=== PATIENT | male | born 1980 | race Caucasian/White ===

== ENCOUNTER 2020-09-15 12:59 | Emergency (ER) | payer SELFPAY ==
--- NOTE | ~2020-09-15 | US_ITS ---
EXAMINATION: US SCROTUM CLINICAL INFORMATION: Left testicular pain. Question torsion. COMPARISON: None TECHNIQUE: A sonogram of the scrotum was performed assessing viera-scale appearance and color Doppler flow. Spectral Doppler analysis of the arterial and venous flow were performed in the testes bilaterally. FINDINGS: RIGHT: Right testicle measures 5 x 2.3 x 3.3 cm, volume 19.9 mL. No focal testicular parenchymal lesions are visualized. Spectral Doppler analysis of the arterial and venous flow is normal in the right testis. Right epididymal head is normal in size. No right hydrocele or varicocele is seen. Right epididymal Doppler flow is within normal limits. LEFT: Left testicle measures 4.9 x 2.5 x 3.5 cm, volume 22.9 mL. No focal testicular parenchymal lesions are visualized. Spectral Doppler analysis of the arterial and venous flow is normal in the left testis. Left epididymal head is normal in size. No left hydrocele or varicocele is seen. Left epididymal Doppler flow is within normal limits. US/US scrotum doppler IMPRESSION: No sonographic findings to suggest acute active testicular torsion.
--- NOTE | ~2020-09-15 | US_ITS ---
EXAMINATION: US SCROTUM CLINICAL INFORMATION: Left testicular pain. Question torsion. COMPARISON: None TECHNIQUE: A sonogram of the scrotum was performed assessing viera-scale appearance and color Doppler flow. Spectral Doppler analysis of the arterial and venous flow were performed in the testes bilaterally. FINDINGS: RIGHT: Right testicle measures 5 x 2.3 x 3.3 cm, volume 19.9 mL. No focal testicular parenchymal lesions are visualized. Spectral Doppler analysis of the arterial and venous flow is normal in the right testis. Right epididymal head is normal in size. No right hydrocele or varicocele is seen. Right epididymal Doppler flow is within normal limits. LEFT: Left testicle measures 4.9 x 2.5 x 3.5 cm, volume 22.9 mL. No focal testicular parenchymal lesions are visualized. Spectral Doppler analysis of the arterial and venous flow is normal in the left testis. Left epididymal head is normal in size. No left hydrocele or varicocele is seen. Left epididymal Doppler flow is within normal limits. US/US scrotum IMPRESSION: No sonographic findings to suggest acute active testicular torsion.
--- NOTE | ~2020-09-15 | CT_ITS ---
EXAMINATION: CT ABDOMEN AND PELVIS WITHOUT CONTRAST CLINICAL INFORMATION: Left flank pain. Rule out kidney stone. COMPARISON: Prior images 08/31/2015 are not available for direct comparison. Correlation done with the report. TECHNIQUE: Multidetector volumetric imaging was performed from the superior aspect of the liver through the pubic symphysis. Sagittal and coronal reformatted images were obtained on the technologist's workstation. This CT examination was performed using dose optimization techniques as appropriate, variously including the following: *Automated exposure control. *Adjustment of mA and/or kV according to patient size (this includes techniques or standardized protocols for targeted exams where dose is matched to indication/reason for exam; i.e. extremities or head). *Use of iterative reconstruction technique. DLP: 520 mGy-cm. FINDINGS: LUNG BASES: The visualized lung bases are unremarkable. LIVER, GALLBLADDER, AND BILIARY TREE: The liver is normal in size, shape, and attenuation. No focal hepatic lesion or biliary ductal dilatation is present. The gallbladder is unremarkable with no evidence of radiopaque gallstones, gallbladder wall thickening, or obvious pericholecystic inflammatory changes. PANCREAS: Unremarkable. SPLEEN: Unremarkable. ADRENAL GLANDS: Unremarkable. KIDNEYS AND URETERS: Multiple right renal nonobstructing calculi; larger calculi including a 3 mm calculus in the lower pole, 3 mm calculus in the midpole, 2 mm calculus in the upper pole. Multiple nonobstructing calculi in the left kidney; larger includes 2 mm calculus in the midpole, 3 mm calculus in the lower pole. There is a 5.1 cm right parapelvic cyst. Multiple low signal foci in bilateral kidneys, larger of which have measurements compatible with a cyst, smaller of which are too small to characterize, probably reflecting cysts. No hydronephrosis. No ureteral calculi are seen. BLADDER: Unremarkable. GASTROINTESTINAL TRACT: Stomach is nondistended. Small and large bowel loops appear unremarkable. Nonobstructive bowel gas pattern. Normal appendix. ABDOMINAL WALL: No significant hernia is appreciated. LYMPH NODES: No adenopathy seen in the abdomen or pelvis. VASCULAR: Normal caliber aorta. PELVIC VISCERA: Within normal limits. OSSEOUS STRUCTURES: No suspicious osseous abnormality seen. CT/CT abdomen pelvis wo con IMPRESSION: 1. Multiple bilateral nonobstructing renal calculi. No evidence for ureteral calculi. No evidence of hydronephrosis. 2. Right renal 5.1 cm parapelvic cyst. Multiple hypodense lesions in bilateral kidneys, probable cyst. 3. Nonobstructive bowel gas pattern.
[2020-09-15 13:02] VITALS: BP 170/95; PULSE 95; RESP 18; TEMP 36.6; O2SAT 97; BMI 27.5
[2020-09-15 13:18] LABS: Glucose Urine UA NEG (NEG); Leukocyte Esterase Urine NEG (NEG); Nitrite Urine NEG (NEG); Urine Blood TRACE (NEG); Urine Ketones NEG (NEG); Urine Protein NEG (NEG-TRACE)
[2020-09-15 13:19] LABS: Appearance Urine CLEAR; Color Urine YELLOW
[2020-09-15 13:33] LABS: RBC Urine 0-2 /HPF (0)
[2020-09-15 13:46] VITALS: BP 140/90; PULSE 90; RESP 20; TEMP 37.4; O2SAT 97
[2020-09-15] MEDS: Ketorolac Tromethamine 30 MG/ML VIAL IVPUSH (13:59)
[2020-09-15] MEDS: 0.9 % Sodium Chloride 1,000 ML 999 ML IV ×2 (13:59→17:19)
[2020-09-15] MEDS: ondansetron HCL 4 MG/2 ML VIAL IVPUSH (13:59)
--- NOTE | 2020-09-15 14:02 | ED_ITS ---
HPI - Male Genitourinary General Chief complaint: Urogenital-Male Stated complaint: flank pain Time Seen by Provider: 09/15/20 13:31 Source: patient Mode of arrival: ambulatory Limitations: no limitations History of Present Illness HPI Narrative: 39-year-old male who presents emergency department for evaluation of left flank pain x5 days with pain radiating into his left testicle x1 day. Patient states that he has a history of renal colic secondary to kidney stones and has required stenting and lithotripsy in the past by Dr. Berumen. He states that 5 days prior had a gradual onset of left flank pain which she describes as a constant, squeezing sensation. The pain initially was mild to moderate and is now severe, 10/10. He states that the pain radiates into his left testicle and he has the squeezing left testicular pain which is constant with a past 24 hours. Patient states he has been taking ibuprofen 800 mg several times a day without relief his pain. He has noticed difficulty urinating with decreased urinary output. He denied fever, chills, nausea, vomiting, change in his bowel movements. Related Data Previous Rx's Medication Instructions Recorded oxycodone-acetaminophen [Percocet] 1 tab PO Q4-6H PRN #14 tab 09/15/20 tamsulosin [Flomax] 0.4 mg PO DAILY 7 Days #7 cap 09/15/20 Allergies Allergy/AdvReac Type Severity Reaction Status Date / Time No Known Allergies Allergy Verified 09/15/20 13:02 [No Known Allergies*] Review of Systems Review of Systems: Yes all other systems are reviewed and are negative [facility] Past Medical History [facility] Narrative: Patient has a history of ADHD, kidney stones requiring stents and lithotripsy. He smokes 1 pack of cigarettes per day times 20 years, denies alcohol and drug use. Medical History (Updated 09/15/20 @ 18:06 by Jose Plunkett MD) ADHD Depression GERD (gastroesophageal reflux disease) Kidney stones Surgical History (Updated 09/15/20 @ 13:07 by Deborah Benz RN) History of renal stent Social History Social History Advance Directives: No Advance Directives Information Provided: No Physical Exam Vital Signs: Vital Signs: Last Vital Signs Temp 98.3 F 09/15/20 15:05 Pulse 88 09/15/20 15:05 Resp 16 09/15/20 15:05 BP 154/97 H 09/15/20 15:05 Pulse Ox 98 09/15/20 15:05 Body Mass Index 27.5 Const: General: cooperative, healthy appearing and in distress ([id number] distress secondary to flank pain) Orientation/consciousness: oriented to person and oriented to place Limitations: no limitations HENMT: Head: Yes normal to inspection, Yes normocephalic and Yes atraumatic Ears: external ears normal General nose exam: Normal external nose present Face and sinus: Yes normal facial exam Mouth: Normal oral and palatal mucosa present Throat: Yes posterior oropharynx normal Eyes: Periorbital: periorbital findings normal Eyelids: Yes eyelids normal Conjunctivae: conjunctivae normal Sclerae: sclerae normal Corneas: corneas normal Pupils: Equal, round and reactive pupils present Direct Ophthalmoscopy: normal light reflex Neck: Neck: Yes full ROM, Yes no lymphadenopathy, Yes no meningeal signs, Yes trachea midline and Yes supple Chest: Chest palpation & inspection: normal inspection of the chest and normal palpation of entire chest wall Resp: Effort & Inspection: normal respiratory effort and able to speak in complete sentences Auscultation: clear to auscultation bilaterally Cardio: Rate: regular rate Rhythm: regular rhythm Heart sounds: S1 normal heart sound present, S2 normal heart sound present and no murmurs GI: Inspection: Yes normal to inspection Palpation (GI): Soft to palpation, nontender, no guarding, not rigid and No hepatosplenomegaly present : General: Yes no CVA tenderness Penis: normal penis and circumcised Meatus: meatus normal Scrotum: scrotum normal, testes descended bilaterally and no scrotal swelling Testes: testicular lie normal, no testicular swelling and no testicular tenderness Back/Spine/Pelvis: Back: no CVA tenderness Cervical Spine: normal cervical lordosis Thoracic/Lumbar Spine: thoracic and lumbar spine normal to inspection Skin: Lesions: no lesions Rashes: no rashes Wounds: no wounds Neuro: General: oriented to person, oriented to place and no meningeal signs Cranial nerves: Yes CN's II-XII intact bilaterally and Yes Equal, round and reactive pupils present Cognition (Neuro): normal cognition Motor exam (neuro): 5/5 motor strength present throughout Extrem: General: Yes normal to inspection and Yes full ROM Psych: Appearance: well kempt Mental Status: mental status grossly normal Speech and movement: Normal speech and movement present Affect: normal affect Attitude: cooperative Thought process: Normal thought process present Thought content: Normal thought content present Course Course Course Narrative: 39-year-old male who presents emergency department for evaluation of left flank pain x5 days and left testicular pain x1 day. Physical examination revealed that the patient is in distress secondary to pain otherwise had no significant findings. I did order a CBC, CMP, lipase, urinalysis, CT scan of the abdomen pelvis with IV contrast and left testicular ultrasound to rule out torsion. Patient's pain was treated with Toradol 30 mg IV and morphine 4 mg IV. He was also given Zofran 4 mg for nausea. Patient was also ordered to get normal saline x1 L. 1758: The patient required a total of 2 L of normal saline IV, morphine 4 mg IV x2 and Dilaudid 1 mg IV x1 to control his pain. Patient's laboratory evaluation revealed normal kidney function, negative urinalysis and a normal CBC. The patient's CT scan of the abdomen pelvis without IV contrast revealed multiple bilateral kidney stones with no hydronephrosis and no hydroureter. The patient's right 5.1 cm parapelvic cyst with smaller cysts seen in the kidney too small to measure. At this time, I suspect the patient's pain is secondary to renal or ureteral colic. The patient will be discharged home with a prescription for Percocet 5/325, 1 pill every 4-6 hours as needed for pain. He was also given a prescription for Flomax 0.4 mg daily times 1 week. He was advised to follow-up with his urologist and return to emergency department if symptoms get worse or if he gets new symptoms that are concerning to him. [place] [facility] search revealed a recurrence prescription for controlled substance but no prescriptions for Percocet and a 1 year search interval MDM - Male Genitourinary Lab Data Result diagrams: 09/15/20 13:58 09/15/20 13:58 Labs: Lab Results 09/15/20 09/15/20 09/15/20 Range/Units 13:11 13:58 13:58 WBC 10.4 (4.8-10.8) X10*3/uL RBC 5.11 (4.60-5.80) X10*6/uL Hgb 16.8 (14.0-18.0) g/dl Hct 46.7 (42-52) % MCV 91.4 (80-98) fL MCH 32.9 (27.0-33.0) pg MCHC 36.0 (31.0-36.0) g/dl RDW 11.9 (11.0-16.0) % Plt Count 215 (160-400) X10*3/uL MPV 8.8 L (9.4-12.4) fL Immature Gran % (Auto) 0.3 (0.0-0.4) % Neut % (Auto) 70.4 (45-73) % Lymph % (Auto) 21.1 (20-40) % [place] % (Auto) 5.3 (2-11) % Eos % (Auto) 2.6 (0-4) % Baso % (Auto) 0.3 (0-2) % Lymph # (Auto) 2.2 (1.2-4.9) X10*3/uL [place] # (Auto) 0.6 (0.1-1.2) X10*3/uL Eos # (Auto) 0.3 (0.0-0.4) X10*3/uL Baso # (Auto) 0.0 (0.0-0.2) X10*3/uL Abs Immat Gran (auto) 0.03 (0.00-0.03) X10*3/uL Absolute Neuts (auto) 7.3 (2.0-8.3) X10*3/uL Absolute Nucleated RBC 0.000 (0.0-0.012) X10*3/uL Nucleated RBC % (auto) 0.0 (0.0-0.2) /100WBC Sodium 137 (135-145) mmol/L Potassium 4.1 (3.3-5.1) mmol/L Chloride 105 (96-108) mmol/L Carbon Dioxide 23 (22-29) mmol/L Anion Gap 13 (12-20) BUN 13 (9-16) mg/dL Creatinine 0.78 (0.5-1.4) mg/dL Estim Creat Clear Calc 128.6 Estimated GFR > 60 Random Glucose 118 H (60-115) mg/dL Calcium 9.2 (8.4-10.2) mg/dL Total Bilirubin 0.5 (0.0-1.0) mg/dL AST 18 (5-37) U/L ALT 29 (0-40) U/L Alkaline Phosphatase 90 (39-117) U/L Total Protein 7.0 (6.5-8.0) g/dL Albumin 4.3 (3.5-5.0) g/dL Lipase 27 (8-78) U/L Urine Color YELLOW Urine Appearance CLEAR Urine pH 6.0 (5.0-8.0) Ur Specific [place] 1.010 (1.005-1.025) Urine Protein NEG (NEG-TRACE) MG/DL Urine Glucose (UA) NEG (NEG) MG/DL Urine Ketones NEG (NEG) MG/DL Urine Blood TRACE (NEG) Urine Nitrite NEG (NEG) Ur Leukocyte Esterase NEG (NEG) Urine RBC 0-2 (0) /HPF Urine WBC 1-4 (0-4) /HPF Ur Squamous Epith Cells NONE /LPF Urine Bacteria NONE /LPF Discharge Plan Discharge Clinical Impression: Renal colic on left side Patient Disposition: Home, Self-Care Instructions: Renal Colic (ED) Additional Instructions: Your blood work and urinalysis were unremarkable. The CT scan of your abdomen pelvis without IV contrast revealed multiple kidney stones in both kidneys . There was no stone in the ureter (the tube that connects the kidney to the bladder) , no swelling of your kidneys or swelling of the ureter noted. At this time, I do not have a clear cause for your pain but your pain is most likely caused by renal colic (kidney pain). Take Percocet 5/325, 1 pill every 4-6 hours as needed for pain. Take ibuprofen 200 mg pills, 3 pills every 6 hours as needed for pain. Also take Flomax 0.4 mg, 1 pill daily for 1 week to see if this helps reduce the pain. You also have an incidental finding of right 5.1 cm parapelvic/kidney cyst and you may also have smaller cysts in both kidneys as well. These are not causing your pain. Follow-up with Dr. Berumen in 7 days. Please return to the emergency department if your symptoms get worse or if you develop any symptoms that are concerning to you. Prescriptions: New oxycodone-acetaminophen [Percocet] 5-325 mg tablet 1 tab PO Q4-6H PRN (Reason: pain) Qty: 14 RF: 0 tamsulosin [Flomax] 0.4 mg capsule 0.4 mg PO DAILY 7 Days Qty: 7 RF: 0
[2020-09-15 14:03] LABS: MANUAL DIFF FLAG NO
[2020-09-15 14:06] LABS: Basophils Percent Auto 0.3 % (0-2); Eosinophils Absolute Auto 0.3 X10*3/uL (0.0-0.4); Eosinophils Percent Auto 2.6 % (0-4); Hematocrit 46.7 % (42-52); Hemoglobin 16.8 g/dl (14.0-18.0); Imm Gran Abs Auto 0.03 X10*3/uL (0.00-0.03); Imm Gran Pct Auto 0.3 % (0.0-0.4); Lymphocytes Absolute Auto 2.2 X10*3/uL (1.2-4.9); Lymphocytes Percent Auto 21.1 % (20-40); Mean Corpuscular Hemoglobin 32.9 pg (27.0-33.0); Mean Corpuscular Volume 91.4 fL (80-98); Mean Platelet Volume 8.8 fL (9.4-12.4); Monocytes Absolute Auto 0.6 X10*3/uL (0.1-1.2); Monocytes Percent Auto 5.3 % (2-11); Neutrophils Absolute Auto 7.3 X10*3/uL (2.0-8.3); Neutrophils Percent Auto 70.4 % (45-73); Platelet Count 215 X10*3/uL (160-400); Red Blood Count 5.11 X10*6/uL (4.60-5.80); Red Cell Distribution Width 11.9 % (11.0-16.0); White Blood Count 10.4 X10*3/uL (4.8-10.8)
[2020-09-15] MEDS: Morphine Sulfate 4 MG/ML CARTRIDGE IVPUSH ×2 (14:10→15:08)
[2020-09-15 14:36] LABS: Alanine Aminotransferase 29 U/L (0-40); Albumin Level 4.3 g/dL (3.5-5.0); Alkaline Phosphatase 90 U/L (39-117); Anion Gap 13 (12-20); Aspartate Amino Transferase 18 U/L (5-37); Bilirubin Total 0.5 mg/dL (0.0-1.0); Blood Urea Nitrogen 13 mg/dL (9-16); Calcium 9.2 mg/dL (8.4-10.2); Carbon Dioxide 23 mmol/L (22-29); Chloride 105 mmol/L (96-108); Creatinine Clr Calc Pharmacy 128.6; Estimated Glomerular Filt Rate > 60; Glucose Random 118 mg/dL (60-115); Lipase 27 U/L (8-78); Potassium 4.1 mmol/L (3.3-5.1); Sodium 137 mmol/L (135-145)
[2020-09-15 15:05] VITALS: BP 154/97; PULSE 88; RESP 16; TEMP 36.8; O2SAT 98
[2020-09-15] MEDS: HYDROmorphone HCl 1 MG/ML SYRINGE IVPUSH (17:19)
[2020-09-15 18:39] VITALS: BP 145/92; PULSE 68; O2SAT 100
== END 2020-09-15 18:44 | disposition home or self-care (01) ==
PROVIDERS: Emergency Provider Emergency Medicine Emergency Medical Services; PCP Internal Medicine
DX: N23 Unspecified renal colic (principal); N50.812 Left testicular pain; Z79.899 Other long term (current) drug therapy
CPT/HCPCS: 36415; 74176; 76870; 80053; 81001; 83690; 85025; 93975; 96365; 96375; 99284; J1170; J1885; J2270; J2405